=== PATIENT | female | born 1990 | race Caucasian/White ===

== ENCOUNTER 2017-09-27 19:15 | Emergency (ER) | payer OTHER ==
[2017-09-27] MEDS: ONDANSETRON 4 MG INJ IV (21:51)
[2017-09-27] MEDS: morphine 4 MG/ML VIAL IV (21:52)
[2017-09-27] MEDS: SOD CHLORIDE 0.9% 1,000 ML IV (21:56)
[2017-09-27 22:10] LABS: ADD MAN DIFF? NO
[2017-09-27 22:13] LABS: WHITE BLOOD COUNT 11.8 10^3/ul (4.8-10.8)
[2017-09-27 22:13] LABS: BASOPHIL # 0.1 10^3/ul (0.0-0.1); BASOPHILS % 0.5 % (0.0-2.0); EOSINOPHILS # 0.2 10^3/ul (0.0-0.5); EOSINOPHILS % 1.5 % (0.0-7.0); HEMOGLOBIN 12.8 g/dl (12.0-16.0); LYMPHOCYTES # 3.4 10^3/ul (0.8-2.9); LYMPHOCYTES % 28.6 % (15.0-51.0); MEAN CORPUSCULAR HGB CONC 33.7 g/dl (32.0-37.0); MEAN PLATELET VOLUME 9.6 fl (7.4-10.4); MONOCYTES % 8.5 % (0.0-11.0); NEUTROPHIL # 7.1 10^3/ul (1.6-7.5); NEUTROPHILS % 60.6 % (39.0-77.0); PLATELET COUNT 357 10^3/UL (140-415); RED BLOOD COUNT 4.13 10^6/ul (4.20-5.40)
[2017-09-27 22:30] LABS: ANION GAP 18 (8-16); BLOOD UREA NITROGEN 15 mg/dl (7-20); CALCIUM 9.3 mg/dl (8.4-10.2); CARBON DIOXIDE 27 mmol/L (21-31); CHLORIDE 104 mmol/L (97-110); GLUCOSE 92 mg/dl (70-220); POTASSIUM 3.8 mmol/L (3.5-5.1); SODIUM 145 mmol/L (135-144)
== END 2017-09-27 23:28 | disposition home or self-care (01) ==
LOC: FTE 19:15
DX: R51 Headache (principal); R11.2 Nausea with vomiting, unspecified; H53.8 Other visual disturbances; R40.2142 Coma scale, eyes open, spontaneous, at arrival to emergency department; R40.2252 Coma scale, best verbal response, oriented, at arrival to emergency department; R40.2362 Coma scale, best motor response, obeys commands, at arrival to emergency department
CPT/HCPCS: 36415; 70450; 80048; 85025; 96374; 96375; 99285-25

== ENCOUNTER 2017-09-29 21:31 | Emergency (ER) | payer SELFPAY, OTHER | END 2017-09-30 00:31 | disposition left against medical advice (07) | LOC: E/R 09-30 00:31 | DX: Z53.21 Procedure and treatment not carried out due to patient leaving prior to being seen by health care provider (principal) ==

== ENCOUNTER 2019-05-02 20:28 | Emergency (ER) | payer OTHER ==
[2019-05-02] MEDS: PANTOPRAZOLE (EC) 40 MG TAB PO (21:11)
[2019-05-02] MEDS: LIDOCAINE/MYLANTA 40 ML BTL PO (21:11)
[2019-05-02] MEDS: ONDANSETRON (ODT) 4 MG TAB ODT (21:11)
[2019-05-02] MEDS: HYDROCODONE/APAP (10/325) TAB PO (21:49)
== END 2019-05-02 21:56 | disposition home or self-care (01) ==
LOC: FTE 20:28
DX: K29.00 Acute gastritis without bleeding (principal)
CPT/HCPCS: 81025; 99283